=== PATIENT | female | born 1950 | race African-American/Black ===

== ENCOUNTER 2021-06-13 16:19 | Inpatient (IN) | payer OTHER ==
[~2021-06-13] VITALS: Ht 165.1 cm; Wt 92.5 kg
[2021-06-13] VITALS (7 sets, daily range): BP systolic 89–117; BP diastolic 46–66
--- NOTE | 2021-06-13 16:54 | NUR ---
[facility] [phone] (CELL) [phone] ([place])
[2021-06-13 17:16] LABS: BASOPHILS 0.5 % (0.0-2.0); EOSINOPHILS 0.5 % (0.0-3.0); HEMATOCRIT 35.1 % (37.0-47.0); HEMOGLOBIN 11.2 gm/dL (12.0-15.0); LYMPHOCYTES 13.4 % (24.0-44.0); MCHC 31.9 g/dL (28.0-37.0); MCV 97.1 fL (80.0-100.0); MONOCYTES 8.3 % (1.0-8.0); PLATELET COUNT 324 thou/uL (150-400); POLYS 77.3 % (36.0-66.0); RBC 3.61 mil/uL (4.20-5.00); RDW 17.4 % (10.5-14.5); WBC 7.7 thou/uL (4.0-11.0)
[2021-06-13 17:33] LABS: URINE BILIRUBIN 2+ (Negative); URINE BLOOD 2+ (Negative); URINE CLARITY CLEAR; URINE COLOR YELLOW; URINE GLUCOSE-RANDOM* NEGATIVE (Negative); URINE KETONES TRACE (Negative); URINE LEUKOCYTES-REFLEX NEGATIVE (Negative); URINE NITRITE-REFLEX NEGATIVE (Negative); URINE PROTEIN (DIPSTICK) TRACE (Negative); URINE SPECIFIC GRAVITY >= 1.030 (1.005-1.035); URINE UROBILINOGEN 0.2 E.U./dl (0.2-1.0)
[2021-06-13 17:43] LABS: SQUAMOUS >10 Many /LPF (0-3); URINE RBC 1-2 Rare /HPF (NONE SEEN); URINE WBC-REFLEX None Seen /HPF (0-5)
[2021-06-13 17:44] LABS: BACTERIA-REFLEX None Seen /HPF (None Seen); CRYSTALS None Seen /LPF (None Seen); HYALINE CASTS 0-3 Few /LPF (None Seen); MUCUS >6 Heavy strn/LPF (None Seen)
[2021-06-13] MEDS ORDERED: ALLOPURINOL 10100 M3 PO (17:52)
[2021-06-13] MEDS ORDERED: MICARDIS 80 MG80 MG PO (17:52)
[2021-06-13] MEDS ORDERED: KOMBIGLYZE XR1 EACH PO (17:52)
[2021-06-13] MEDS ORDERED: SPIRONOLACTONE50 MG PO (17:53)
[2021-06-13] MEDS ORDERED: CALCIUM500 MG PO (17:53)
[2021-06-13] MEDS ORDERED: ASA81BEC PO (17:53)
[2021-06-13] MEDS ORDERED: LIPITOR40 MG PO (17:53)
[2021-06-13] MEDS ORDERED: LEVEMIR100 UNIT/2 SUBQ (17:53)
[2021-06-13 18:42] LABS: POTASSIUM 9.1 mmol/L (3.5-5.1)
[2021-06-13 18:43] LABS: CALCIUM 10.3 mg/dL (8.5-10.1); CREATININE 4.6 mg/dL (0.6-1.0); TOTAL BILIRUBIN 0.4 mg/dL (0.2-1.0)
[2021-06-13 18:44] LABS: ALBUMIN 3.9 g/dL (3.4-5.0); TOTAL PROTEIN 8.8 g/dL (6.4-8.2)
[2021-06-13 19:49] LABS: PROT/CREAT RATIO 0.2; URINE POTASSIUM-RANDOM* 46.2 mmol/L; URINE PROTEIN-RANDOM* 88.7 mg/dL (<11.9)
[2021-06-13 19:58] LABS: URINE CREATININE-RANDOM* 471.5 mg/dL
--- NOTE | 2021-06-13 20:29 | NUR ---
CALLED PHARMACY IN REGARDS TO COMPATABILITY OF LR AND SODIUM BICARB DUE TO BOTH ORDERS. PHARMACY STATES INCOMPATABILIY. WILL GIVE LR FIRST SINCE OVER 1 HOUR THEN WILL GIVE SODIUM BICARB IV BAG.
[2021-06-13 20:35] LABS: PHOSPHORUS 5.5 mg/dL (2.6-4.7)
[2021-06-14] VITALS (44 sets, daily range): BP systolic 92–123; BP diastolic 48–66
[2021-06-14 07:33] LABS: HEMATOCRIT 33.6 % (37.0-47.0); HEMOGLOBIN 10.5 gm/dL (12.0-15.0); MCH 30.7 pg (26.0-34.0); MCHC 31.2 g/dL (28.0-37.0); MCV 98.5 fL (80.0-100.0); RBC 3.41 mil/uL (4.20-5.00); RDW 16.8 % (10.5-14.5); WBC 6.7 thou/uL (4.0-11.0)
[2021-06-14 07:50] LABS: CALCIUM 9.7 mg/dL (8.5-10.1); MAGNESIUM 1.5 mg/dL (1.8-2.4)
[2021-06-14 07:51] LABS: CREATININE 3.6 mg/dL (0.6-1.0)
[2021-06-14 07:52] LABS: POTASSIUM 6.3 mmol/L (3.5-5.1)
[2021-06-14 08:05] LABS: PHOSPHORUS 5.3 mg/dL (2.6-4.7)
[2021-06-14 08:06] LABS: ALBUMIN 3.4 g/dL (3.4-5.0)
--- NOTE | 2021-06-14 09:48 | EKG ---
[place] [address] [facility] [email or web address] [address] ELECTROCARDIOGRAM REPORT Name: JAIRO GRACIA Room #: 250-P ADM IN M.R.#: [id number] Admission: 06/13/21 Attend Phys: Beth Diaz Discharge: Date of : 50 Report #: [id number] [facility] ED Test Date: 2021-06-13 Test Time: 17:19:43 Pat Name: JAIRO GRACIA Department: Room: 250 Gender: F Direct Mail Manager: [email or web address] : 1950 Requested By: Heaven Young Order Number: [id number] MD: Kashif Muñoz Measurements Intervals [place] Rate: 60 P: -44 [place]: 143 QRS: -53 QRSD: 139 T: 48 QT: 430 QTc: 430 Interpretive Statements Sinus rhythm IVCD ST and T wave abnormality, consider hyperkalemia No previous ECG available for comparison Electronically Signed On 06-14-2021 9:47:35 CDT by Kashif Muñoz [email or web address] <ELECTRONICALLY SIGNED> By: Kashif Muñoz MD, [facility] 06/14/21 0947 [id number] 1719 Kashif Muñoz MD, FACC /EPI
[2021-06-14 15:29] LABS: CREATININE 2.9 mg/dL (0.6-1.0)
[2021-06-14 15:33] LABS: POTASSIUM 5.1 mmol/L (3.5-5.1)
--- NOTE | 2021-06-14 18:33 | NUR ---
Patient is progressing towards goal. Had 2 large BM today and potassium levels are improving. visited today and updated on patient plan of care.
[2021-06-14 23:35] LABS: ALBUMIN 2.7 g/dL (3.4-5.0); CALCIUM 7.9 mg/dL (8.5-10.1); CREATININE 2.6 mg/dL (0.6-1.0); PHOSPHORUS 2.9 mg/dL (2.5-4.9); POTASSIUM 4.4 mmol/L (3.5-5.1)
--- NOTE | 2021-06-14 23:42 | NUR ---
PT TRANSFERRED FROM THE ICU AT AROUND 2300 HRS. PT IS ALERT AND ORIENTED X4. SHE IS ON ROOM AIR.DENIES PAIN.MALLORY IN PLACE. HOOKED BACK TO IVF AND ABTS.SCDS APPLIED. AFEBRILE. DENIES COUGH OR SOA.FEELS ALOT BETTER AND IS IN GOOD SPIRITS. ORIENTED TO STAFF, ROOM AND USE OF CALL LIGHT. NO FURTHER CONCERNS AT THIS TIME.
[2021-06-15 02:05] LABS: GLYCOHEMOGLOBIN (HGB A1C) 6.4 % (4.8-5.6)
[2021-06-15 04:33] VITALS: BP 109/52
[2021-06-15 05:39] LABS: ALBUMIN 2.6 g/dL (3.4-5.0); CALCIUM 7.9 mg/dL (8.5-10.1); CREATININE 2.3 mg/dL (0.6-1.0); PHOSPHORUS 3.5 mg/dL (2.6-4.7)
[2021-06-15 07:55] VITALS: BP 104/53
[2021-06-15 12:00] VITALS: BP 152/96
[2021-06-15 16:05] VITALS: BP 123/57
[2021-06-15 20:15] VITALS: BP 95/69
[2021-06-16 04:45] VITALS: BP 132/58; BP 150/81
[2021-06-16 04:50] LABS: HEMATOCRIT 25.1 % (37.0-47.0); HEMOGLOBIN 8.9 gm/dL (12.0-15.0); MCHC 35.3 g/dL (28.0-37.0); MCV 93.7 fL (80.0-100.0); RBC 2.68 mil/uL (4.20-5.00); WBC 4.2 thou/uL (4.0-11.0)
[2021-06-16 05:26] LABS: ALBUMIN 2.5 g/dL (3.4-5.0); CALCIUM 7.5 mg/dL (8.5-10.1); CREATININE 1.8 mg/dL (0.6-1.0); PHOSPHORUS 3.1 mg/dL (2.5-4.9); POTASSIUM 3.9 mmol/L (3.5-5.1)
[2021-06-16 08:25] VITALS: BP 138/76
[2021-06-16 11:45] VITALS: BP 102/57
--- NOTE | 2021-06-16 13:42 | NUR ---
Met with patient LIZZ ELLIS. Patient resides in indedependent home with spouse. Patient uses no assistive device. She has laundry in basement with no difficulty with steps. Patient drives. Does her own shopping. She admits with abnormal labs, potassium. Patient reports she was so weak [employer], She reports she went to her primary care Dr Gomez. She reports her spouse took her in wc and she could not get out of wc at office. Dr Beverly sent her to ER. She feels much better and does not feel she needs home health care. Patient reports feeling better. If HH ordered she has no preference of home health agency. [facility] following.
[2021-06-16 16:35] VITALS: BP 118/59
[2021-06-16 20:15] VITALS: BP 138/22; BP 138/62
[2021-06-17 03:58] LABS: ALBUMIN 2.4 g/dL (3.4-5.0); CALCIUM 8.1 mg/dL (8.5-10.1); CREATININE 1.5 mg/dL (0.6-1.0); PHOSPHORUS 2.7 mg/dL (2.5-4.9); POTASSIUM 3.7 mmol/L (3.5-5.1)
[2021-06-17 04:45] VITALS: BP 112/54
--- NOTE | 2021-06-17 07:02 | NUR ---
PT RESTING QUIETLY THROUGH THE NOC, REPOSITIONED NEEDED, NO C/O PAIN, HOPES TO GO HOME IN AM, VSS, WILL CON'T TO MONITOR PER PPOC.
[2021-06-17 08:15] VITALS: BP 131/49
[2021-06-17 12:10] VITALS: BP 129/62
[2021-06-17] MEDS ORDERED: AUGMENTIN 875-1 EACH PO (13:25)
[2021-06-17 13:29] VITALS: BP 129/62
[2021-06-17 13:52] VITALS: BP 129/62
--- NOTE | 2021-06-17 14:47 | NUR ---
Patient to dc home with HH care. [facility] met with patient and reviewed HH care. Orders to be faxed. Patient has phone number for home health care.
--- NOTE | 2021-06-17 15:28 | NUR ---
Assumed pt care at 7am.Pt in bed resting. Assessment completed.vss.pt was tearful and sobbing. When rn asked pt what happens ,she said she doesn't want to talk about it.Emotional support given and bledsoe dc'd as ordered. Therapist assited pt to chair for breakfast.Pt tolerated meds and diet.Dr Lee and Mo here,dc order noted.Dc Summary completed and saline lock dc'd.At 1456,pt dc home per wc accompanied by special agent.
== END 2021-06-17 14:57 | disposition home health service (06) | DRG 682 ==
LOC: ER 16:19 → EROBS 19:14 → 2N 19:14 → ICU 22:49 → 2N 06-14 23:23
PROVIDERS: Internal Medicine Nephrology; Nurse Practitioner Family; ADMIT Hospitalist; ATTEND Hospitalist
DX: N17.9 Acute kidney failure, unspecified (principal); J18.9 Pneumonia, unspecified organism; I21.4 Non-ST elevation (NSTEMI) myocardial infarction; M62.82 Rhabdomyolysis; E87.2 Acidosis; E87.5 Hyperkalemia; Z20.822 Contact with and (suspected) exposure to COVID-19; E11.22 Type 2 diabetes mellitus with diabetic chronic kidney disease; N18.9 Chronic kidney disease, unspecified; E11.649 Type 2 diabetes mellitus with hypoglycemia without coma; T50.995A Adverse effect of other drugs, medicaments and biological substances, initial encounter; I12.9 Hypertensive chronic kidney disease with stage 1 through stage 4 chronic kidney disease, or unspecified chronic kidney disease; R53.81 Other malaise; D64.9 Anemia, unspecified; Z90.49 Acquired absence of other specified parts of digestive tract; Z87.891 Personal history of nicotine dependence; Z79.82 Long term (current) use of aspirin; Z79.899 Other long term (current) drug therapy; Y92.89 Other specified places as the place of occurrence of the external cause
CPT/HCPCS: 10078; 10081